=== PATIENT | female | born 1995 | race Caucasian/White ===

== ENCOUNTER 2017-01-13 17:37 | Emergency (ER) | payer OTHER ==
[2017-01-13 18:16] LABS: APPEARANCE,URINE CLEAR; BILIRUBIN,URINE NEGATIVE (NEGATIVE); GLUCOSE, URINE NEGATIVE (NEGATIVE); KETONES,URINE NEGATIVE (NEGATIVE); LEUKOCYTE ESTERASE,URINE NEGATIVE (NEGATIVE); NITRITE,URINE NEGATIVE (NEGATIVE); PROTEIN,URINE NEGATIVE (NEGATIVE); URINE SPECIFIC GRAVITY 1.004; UROBILINOGEN,URINE NEGATIVE mg/dL (<2.0)
[2017-01-13 20:45] LABS: CHLAM PCR DETECTED (NOT DETECT)
--- NOTE | 2017-01-13 21:18 | RADIOLOGY REPORT (SQ) ---
EXAM DESCRIPTION: U/S OB TRANSVAG W/DOPPLER COMPLETED DATE/TIME: 01/13/2017 8:48 pm REASON FOR STUDY: pelvic cramping COMPARISON: None. TECHNIQUE: Transvaginal static and realtime grayscale images acquired of the pelvis. Additional loyda cted spectral and color Doppler images recorded. All images stored on PACs. bHC.32 LIMITATIONS: None. FINDINGS: FETUS: No intrauterine identified on this study. No gestational or yolk sac. No pole. The endometrium measures approximately 14 mm EGA: NA EWELINA: NA FHR: NA . SUBCHORIONIC BLEED: No. SIZE OF BLEED: Not applicable. UTERUS: No masses. No anomalies. CERVICAL LENGTH: 2.6 cm Closed. RIGHT ADNEXA: Normal ovary with normal vascular flow. No adnexal free fluid. No adnexal masses. LEFT ADNEXA: Normal ovary with normal vascular flow. No adnexal free fluid. No adnexal masses. FREE FLUID: Trace OTHER: No other significant finding. IMPRESSION: No intrauterine identified on this study. No ultrasound evidence of ectopic p regnancy. Serial follow-up with beta HCGs and repeat ultrasound as necessary recommended. No eviden ce of ovarian torsion. Trace free fluid noted the pelvis. Trimester of : First - 0 to 13 weeks. TECHNICAL DOCUMENTATION: JOB ID: [id number] [employer]- All Rights Reserved
[2017-01-13] MEDS ORDERED: LIDOCAINE 1% INJ-PF (10 MG/ML) 30 ML SDV INJ ONE (21:27)
[2017-01-13] MEDS ORDERED: METRONIDAZOLE 500 MG TABLET PO ONE (21:27)
[2017-01-13] MEDS ORDERED: AZITHROMYCIN 1 GM SUSP PACKET PO ONE (21:27)
[2017-01-13] MEDS ORDERED: CEFTRIAXONE INJ 250 MG VIAL IM ONE (21:27)
--- NOTE | 2017-01-13 21:27 | ER Document Report ---
ED GI/ - General Chief Complaint: Abdominal Cramping Stated Complaint: ABDOMINAL PAIN Time Seen by Provider: 01/13/17 18:00 Notes: Patient is a 21-year-old female presents emergency department complaining of intermittent abdominal cramping for 1 week. Patient states that her last menstrual period was December 08 but she states she has irregular periods. She took 2 tests at home 1 was negative that was positive. Otherwise denies any vaginal discharge, vaginal irritation, vaginal bleeding, any pyuria, hematuria, urinary frequency. Patient states that she is sexually active with one partner and she is not using protection. She is not on control Patient is an [place]. TRAVEL OUTSIDE OF THE [place] IN LAST 30 DAYS: No - Related Data Allergies/Adverse Reactions: No Known Allergies Allergy (Unverified 01/13/17 17:50) Past Medical History - Social History Smoking Status: Current Every Day Smoker Chew tobacco use (# tins/day): No Frequency of alcohol use: None Drug Abuse: None Family History: Reviewed & Not Pertinent Patient has suicidal ideation: No Patient has homicidal ideation: No Renal/ Medical History: Denies: Hx Peritoneal Dialysis Surgical Hx: Negative - Immunizations Hx Diphtheria, Pertussis, Tetanus Vaccination: No Review of Systems - Review of Systems Constitutional: No symptoms reported Genitourinary: See HPI Female Genitourinary: See HPI -: Yes All other systems reviewed and negative Physical Exam - Vital signs Vitals: Temp Pulse Resp BP Pulse Ox 97.9 F 64 16 126/65 H 100 01/13/17 17:50 01/13/17 17:50 01/13/17 17:50 01/13/17 17:50 01/13/17 17:50 - Notes Notes: PHYSICAL EXAM GENERAL: Alert, interacts well. LUNGS: Clear to auscultation bilaterally, no wheezes, rales, or rhonchi. No respiratory distress. HEART: Regular rate and rhythm. No murmurs, gallops, or rubs. ABDOMEN: Soft, nondistended, nontender. No guarding, rebound, or rigidity.. Bowel sounds present in all 4 quadrants. FEMALE : Normal external exam. No evidence of lesions, lacerations, bruising or vesicles. Speculum exam normal cervix closed. Evidence of vaginal discharge with odor. No evidence of lesions. No vaginal bleeding. Bimanual exam normal no cervical motion tenderness. No adnexal mass or adnexal tenderness. SKIN: Warm, dry, normal turgor. No rashes or lesions noted. Course - Re-evaluation Re-evalutation: 01/13/17 21:51 Patient is a 21-year-old female who is approximately less than 8 weeks . Tested positive chlamydia, negative for gonorrhea, positive for BV, negative for trichomonas, yeast. Transvaginal ultrasound does not show any evidence of IUP nor ectopic . Patient instructed to follow-up with OB/ [facility] on Tuesday for repeat blood work and imaging. Patient educated on the sexual transmitted disease, treatment. Patient expresses understanding and agrees with plan. Stable for discharge home - Vital Signs Vital signs: Temp Pulse Resp BP Pulse Ox 97.9 F 67 18 118/64 100 01/13/17 21:43 01/13/17 21:43 01/13/17 21:43 01/13/17 21:43 01/13/17 21:43 - Laboratory Laboratory results interpreted by me: 01/13/17 01/13/17 01/13/17 18:01 18:45 19:07 Beta HCG, Quant 129.32 H Urine HCG, Qual POSITIVE H Chlamydia DNA (PCR) DETECTED H - Diagnostic Test Radiology reviewed: Reports reviewed Discharge - Discharge Clinical Impression: Chlamydia, Bacterial vaginitis Qualifiers: Weeks of gestation: less than 8 weeks Qualified Code(s): Z3A.01 - Less than 8 weeks gestation of Condition: Good Disposition: HOME, SELF-CARE Instructions: Chlamydia ([facility]) Additional Instructions: Please [place] work and imaging No sexual intercourse for one week All of your sexual partners need to be tested and treated Please consider using a condom in the future if you are engaging in sexual intercourse with more then one partner VAGINITIS: Your exam shows that you have vaginitis, a vaginal infection. The infection can be caused by a many different organisms, including trichomonas or Gardnerella. The usual symptoms are vaginal irritation and discharge. The treatment is usually antibiotics such as Flagyl. Laboratory tests can determine which germ is responsible. Use the medication as prescribed. Because this infection can be transmitted sexually, your sexual partner may need to be checked and treated also. If your physician has not discussed this with you, please check before resuming sexual relations. If a culture shows gonorrhea or chlamydia, the infection must be reported to the health department. Call the doctor if you develop pelvic pain, fever, or problems with urination, or if you don't improve as expected. VAGINOSIS, BACTERIAL: Your exam shows you have bacterial vaginosis. This condition is due to an overgrowth of bacteria in the vagina. Symptoms may include vaginal itching or pain, a smelly discharge, and sometimes burning with urination. Normally this is not transmitted by sexual contact. Vaginosis can be treated with oral or topical antibiotics. Metronidazole ( Flagyl) pills are usually effective. Topical vaginal creams include Cleocin and Metro-Gel. You should avoid sexual contact until your symptoms are all better. Call the doctor if you develop pelvic pain, fever, or problems with urination, or if you don't improve as expected. ANTIBIOTIC THERAPY: You have been given an antibiotic prescription. It's important that you take all the medication, unless instructed otherwise by your physician. Failure to complete the entire course can result in relapse of your condition. Common side effects of antibiotics include nausea, intestinal cramping, or diarrhea. Women may develop vaginal yeast infections, and babies can get yeast (thrush) in the mouth following the use of antibiotics. Contact your physician if you develop significant side effects from this medication. Allergy to this antibiotic can result in hives, wheezing, faintness, or itching. If symptoms of allergy occur, stop the medication and call the doctor. CEPHALOSPORINS: An antibiotic of the cephalosporin class has been prescribed. This type of antibiotic covers a wide variety of infections, including those of the skin, lungs, middle ear, and urinary tract. This antibiotic is somewhat similar to the penicillin family. In rare cases , a person who is allergic to penicillin will also be allergic to this medication. If you have had a severe allergic reaction to penicillin, and have not taken this antibiotic since that time, notify your doctor. Antibiotics which cover many germs ("broad spectrum" antibiotics) are more likely to cause diarrhea or "yeast" infections. Women prone to vaginal yeast problems may suffer an attack after taking this antibiotic. In infants, oral thrush (white spots "stuck" on the cheek) or yeast diaper rash may result. See your doctor if these problems occur. Call the doctor at once if you develop hives, itching, shortness of breath , or lightheadedness. AZITHROMYCIN: Azithromycin (Zithromax) is a broad spectrum antibiotic in the same class as erythromycin. It can treat a variety of bacterial infections, but is most frequently used for respiratory infections. Azithromycin is extremely long-lasting. It accumulates in body tissues and continues to kill bacteria for many days. In order to improve absorption, Azithromycin should be taken at least one hour before or two hours after a meal. It does not have the same strong tendency to upset the stomach as erythromycin and is usually very well tolerated. Patients who have had a rash or other true allergic reactions to erythromycin should not take this medication. Call if you develop gastrointestinal distress, severe diarrhea, rash, hives, itching, or shortness of breath. METRONIDAZOLE: Metronidazole (Flagyl) has been prescribed. This medication is used to kill a type of bacteria called anaerobes, and protozoan parasites such as trichomonas and Giardia. Flagyl often causes a metallic taste in the mouth and mild nausea. Do not use alcohol in any form with Flagyl (including alcohol in medication elixirs). Flagyl interacts with alcohol to cause flushing, palpitations, headache, stomach cramps, and vomiting. Do not use Flagyl if you are taking Antabuse (disulfiram). Call the doctor at once if you develop rash, shortness of breath, itching, or lightheadedness. FOLLOW-UP CARE: If you have been referred to a physician for follow-up care, call the physician s office for an appointment as you were instructed or within the next two days. If you experience worsening or a significant change in your symptoms, notify the physician immediately or return to the Emergency Department at any time for re-evaluation. Prescriptions: Metronidazole [Flagyl 500 mg Tablet] 500 mg PO BID #14 tablet
[2017-01-13 21:44] VITALS: BP 118/64
== END 2017-01-13 21:44 | disposition home or self-care (01) ==
LOC: ER 17:37
DX: O98.311 Other infections with a predominantly sexual mode of transmission complicating pregnancy, first trimester (principal); A56.8 Sexually transmitted chlamydial infection of other sites; O23.591 Infection of other part of genital tract in pregnancy, first trimester; B96.89 Other specified bacterial agents as the cause of diseases classified elsewhere; O26.891 Other specified pregnancy related conditions, first trimester; R10.9 Unspecified abdominal pain; O99.331 Smoking (tobacco) complicating pregnancy, first trimester; Z3A.01 Less than 8 weeks gestation of pregnancy
CPT/HCPCS: 99284; 96372; 36415; 87210; 84702; 81025; 81001; 87491; 87591; 76817; 93976; Q0144; J0696

== ENCOUNTER 2017-01-18 18:48 | Emergency (ER) | payer OTHER ==
--- NOTE | 2017-01-18 19:22 | ER Document Report ---
ED Medical Screen (RME) - General Chief Complaint: Abdominal Pain Stated Complaint: CRAMPING Time Seen by Provider: 01/18/17 19:20 Notes: Patient states she was diagnosed with a of approximate 1 week ago here in the emergency department. She states she originally presented that time because of abdominal cramping. She states she was diagnosed as well with chlamydia and treated for that. She states she has no further urinary problems and no vaginal discharge or bleeding. However she states she does continue to have abdominal cramping and has no physician to follow-up with. This is the patient's first . She has had no vomiting. TRAVEL OUTSIDE OF THE [place] IN LAST 30 DAYS: No - Related Data Allergies/Adverse Reactions: No Known Allergies Allergy (Verified 01/18/17 19:14) Past Medical History Renal/ Medical History: Denies: Hx Peritoneal Dialysis - Immunizations Hx Diphtheria, Pertussis, Tetanus Vaccination: No Physical Exam - Vital signs Vitals: Temp Pulse Resp BP Pulse Ox 98.4 F 66 16 117/61 100 01/18/17 19:12 01/18/17 19:12 01/18/17 19:12 01/18/17 19:12 01/18/17 19:12 Course - Vital Signs Vital signs: Temp Pulse Resp BP Pulse Ox 98.4 F 66 16 117/61 100 01/18/17 19:12 01/18/17 19:12 01/18/17 19:12 01/18/17 19:12 01/18/17 19:12
[2017-01-18 19:46] LABS: ABSOLUTE BASOPHILS # (AUTO) 0.1 10^3/uL (0.0-0.2); ABSOLUTE EOSINOPHILS # (AUTO) 0.3 10^3/uL (0.0-0.6); ABSOLUTE LYMPHOCYTES (AUTO) 2.3 10^3/uL (0.5-4.7); ABSOLUTE NEUT (AUTO) 10.5 10^3/uL (1.7-8.2); BASOPHILS % (AUTO) 0.4 % (0-2); EOSINOPHILS % (AUTO) 1.8 % (0-6); HEMATOCRIT 40.1 % (36.0-47.0); HEMOGLOBIN 13.5 g/dL (12.0-15.5); HGB HCT DIFFERENCE 0.4; LYMPHOCYTES % (AUTO) 16.6 % (13-45); MEAN CORPUSCULAR HEMOGLOBIN 30.5 pg (27.0-33.4); MEAN CORPUSCULAR HGB CONC 33.7 g/dL (32.0-36.0); MEAN CORPUSCULAR VOLUME 91 fl (80-97); MONOCYTES % (AUTO) 6.8 % (3-13); RED BLOOD COUNT 4.42 10^6/uL (3.72-5.28); SEGMENTED NEUTROPHILS % (AUTO) 74.4 % (42-78); WHITE BLOOD COUNT 14.1 10^3/uL (4.0-10.5)
[2017-01-18 20:03] LABS: APPEARANCE,URINE SLIGHTLY-CLOUDY; BILIRUBIN,URINE NEGATIVE (NEGATIVE); GLUCOSE, URINE NEGATIVE (NEGATIVE); KETONES,URINE NEGATIVE (NEGATIVE); LEUKOCYTE ESTERASE,URINE TRACE (NEGATIVE); NITRITE,URINE NEGATIVE (NEGATIVE); PROTEIN,URINE NEGATIVE (NEGATIVE); URINE SPECIFIC GRAVITY 1.026; UROBILINOGEN,URINE NEGATIVE mg/dL (<2.0)
[2017-01-18 20:07] LABS: ANION GAP 11 (5-19); BLOOD UREA NITROGEN 9 mg/dL (7-20); CALCIUM 9.4 mg/dL (8.4-10.2); CARBON DIOXIDE 24 mmol/L (22-30); CHLORIDE 102 mmol/L (98-107); CREATININE RESULT 0.77 mg/dL (0.52-1.25); GLUCOSE 117 mg/dL (75-110); POTASSIUM 4.1 mmol/L (3.6-5.0); SODIUM 136.8 mmol/L (137-145)
--- NOTE | 2017-01-18 21:53 | RADIOLOGY REPORT (SQ) ---
EXAM DESCRIPTION: U/S OB TRANSVAGINAL W/O DOP COMPLETED DATE/TIME: 01/18/2017 9:44 pm REASON FOR STUDY: preg/pain COMPARISON: None. TECHNIQUE: Transvaginal static and realtime grayscale images acquired of the pelvis. Additional loyda cted spectral and color Doppler images recorded. All images stored on PACs. [id number] LIMITATIONS: None. FINDINGS: UTERUS: No masses. No anomalies. GESTATIONAL SAC: A questionable gestational sac is identified measuring 5 weeks. YOLK SAC: Not identified POLE: Not identified RIGHT ADNEXA: Normal ovary with normal vascular flow. No adnexal free fluid. No adnexal masses. LEFT ADNEXA: Normal ovary with normal vascular flow. No adnexal free fluid. Complex areas identified measuring 2.1 x 1.0 x 1.5 cm in diameters which may represent a corpus lutei n cysts. FREE FLUID: Minimal amount of free fluid is identified. OTHER: There is some thickening of endometrium. IMPRESSION: POSSIBLE EARLY INTRAUTERINE . BHCG LEVEL APPROPRIATE FOR ENDOMETRIAL FINDINGS. CONSIDER F/U BHCG AND/OR ULTRASOUND FOR VERIFICATION AND TO EXCLUDE ECTOPIC . Trimester of : First - 0 to 13 weeks. TECHNICAL DOCUMENTATION: JOB ID: [id number] [employer]- All Rights Reserved
--- NOTE | 2017-01-18 22:19 | ER Document Report ---
ED General - General Chief Complaint: Abdominal Pain Stated Complaint: CRAMPING Time Seen by Provider: 01/18/17 19:20 Mode of Arrival: Ambulatory Information source: Patient Notes: This is a 21-year-old female who presents to the emergency room with abdominal cramping. Patient was seen 5 days ago and had a beta quant of 129 and an ultrasound did not show any evidence of . She presented with intermittent abdominal cramping today. Currently, she is not in any distress. She denies any near syncope, fever, vaginal discharge. Patient denies any vaginal bleeding. TRAVEL OUTSIDE OF THE [place] IN LAST 30 DAYS: No - HPI Onset: This morning Onset/Duration: Gradual Quality of pain: Cramping Severity: None Pain Level: 1 Associated symptoms: denies: Chest pain, Fever, Shortness of breath Exacerbated by: Denies Relieved by: Denies Similar symptoms previously: Yes Recently seen / treated by doctor: Yes - Related Data Allergies/Adverse Reactions: No Known Allergies Allergy (Verified 01/18/17 19:14) Past Medical History - General Information source: Patient - Social History Smoking Status: Never Smoker Cigarette use (# per day): No Chew tobacco use (# tins/day): No Frequency of alcohol use: None Drug Abuse: None Lives with: Spouse/Significant other Family History: Reviewed & Not Pertinent Patient has suicidal ideation: No Patient has homicidal ideation: No - Medical History Medical History: Negative Renal/ Medical History: Denies: Hx Peritoneal Dialysis Surgical Hx: Negative - Immunizations Hx Diphtheria, Pertussis, Tetanus Vaccination: No Review of Systems - Review of Systems Constitutional: denies: Chills, Fever EENT: No symptoms reported Cardiovascular: No symptoms reported Respiratory: No symptoms reported Gastrointestinal: See HPI Genitourinary: No symptoms reported Female Genitourinary: No symptoms reported Musculoskeletal: No symptoms reported Skin: No symptoms reported Hematologic/Lymphatic: No symptoms reported Neurological/Psychological: No symptoms reported Physical Exam - Vital signs Vitals: Temp Pulse Resp BP Pulse Ox 98.4 F 66 16 117/61 100 01/18/17 19:12 01/18/17 19:12 01/18/17 19:12 01/18/17 19:12 01/18/17 19:12 Notes: Physical exam: GENERAL: 21-year-old female, alert and oriented 3, no acute distress. Patient is comfortable in no pain at all. HEAD: Atraumatic, normocephalic. EYES: Pupils equal round and reactive to light, extraocular movements intact, sclera anicteric, conjunctiva are normal. ENT: TMs normal, nares patent, oropharynx clear without exudates. Moist mucous membranes. NECK: Normal range of motion, supple without lymphadenopathy or JVD. LUNGS: Breath sounds clear to auscultation bilaterally and equal. No wheezes rales or rhonchi. HEART: Regular rate and rhythm without murmurs, rubs or gallops. ABDOMEN: Soft, normoactive bowel sounds. No tenderness to palpation. No guarding, no rebound. No masses appreciated. EXTREMITIES: Normal range of motion, no pitting or edema. No clubbing or cyanosis. NEUROLOGICAL: Cranial nerves II through XII grossly intact. Normal speech, normal gait. PSYCH: Normal mood, normal affect. SKIN: Warm, Dry, normal turgor, no rashes or lesions noted. Course - Re-evaluation Re-evalutation: 01/18/17 22:16 Note: I had a long discussion with the patient. Her beta hCG has increased appropriately in the last 5 days. The ultrasound read says that there is a possible early intrauterine . I have reviewed the past and I do not see any evidence of a true gestational sac or definitive evidence of the . I have discussed this with them and I think she needs to be followed closely. She looks good right now she has an appointment with her OB doctor in the morning at [facility]. Given this, I will give her a copy of her labs from today's visit as well as 5 days ago, as well as the results of the ultrasound, as well as the actual ltrasound on disc. I have given her good instructions to return to the emergency room at once if she develops any vaginal bleeding or pain. - Vital Signs Vital signs: Temp Pulse Resp BP Pulse Ox 98 F 56 L 18 135/55 H 98 01/18/17 22:44 01/18/17 22:44 01/18/17 22:44 01/18/17 22:44 01/18/17 22:44 - Laboratory Result Diagrams: 01/18/17 19:30 01/18/17 19:30 Laboratory results interpreted by me: 01/18/17 01/18/17 01/18/17 19:30 19:30 19:30 WBC 14.1 H Absolute Neutrophils 10.5 H Sodium 136.8 L Glucose 117 H Beta HCG, Quant 1293.90 H Ur Leukocyte Esterase TRACE H Urine Ascorbic Acid 20 H - Diagnostic Test Radiology reviewed: Image reviewed, Reports reviewed - Ultrasound shows no definitive intrauterine Discharge - Discharge Clinical Impression: Uterine cramping, Early Condition: Good Disposition: HOME, SELF-CARE Additional Instructions: As we discussed, the beta quant (the baby level) has increased appropriately. However the ultrasound does not show definitive evidence of an intrauterine . Oftentimes, this does not occur until the beta quant level reaches 2000. I would like you to bring a copy of your lab work, ultrasound report as well as the ultrasound disc to the OB doctor tomorrow. You will need to be followed closely until we see definitive evidence of an intrauterine Return to the emergency room for any pain, vaginal bleeding, fainting or any concerns he might have regarding the .
[2017-01-18 22:47] VITALS: BP 135/55
== END 2017-01-18 22:44 | disposition home or self-care (01) ==
LOC: ER 18:48
DX: R10.9 Unspecified abdominal pain (principal); R10.2 Pelvic and perineal pain
CPT/HCPCS: 36415; 76817; 80048; 81001; 84702; 85025; 99284